=== PATIENT | male | born 1995 | race Caucasian/White ===

== ENCOUNTER 2021-07-23 17:58 | Emergency (ER) | payer BC ==
[2021-07-23] MEDS ORDERED: Ondansetron 4 MG/2 ML SDV IVPUSH ONE (18:06)
[2021-07-23] MEDS: Sodium Chloride 0.9% 10 ML Syringe FLUSH PRN ×2 (18:26→19:21)
[2021-07-23 18:28] LABS: CHLORIDE,CL 100 mmol/L (98-107); SODIUM,NA 136 mmol/L (136-145)
[2021-07-23 18:29] LABS: ANION GAP 16.8 meq/L (7-15)
[2021-07-23] MEDS ORDERED: Potassium Chloride 20 MEQ Tab.ER PO ONE (18:32)
[2021-07-23] MEDS ORDERED: Acetaminophen 500 MG Tab PO ONE (18:34)
[2021-07-23 18:45] LABS: CORONAVIRUS COVID-19 NAA NEGATIVE (NEGATIVE); RESPIRATORY SYNCYTIAL VIR NAA NEGATIVE (NEGATIVE)
[2021-07-23] MEDS ORDERED: Lactated Ringers 1,000 ML IV ONE (18:52)
[2021-07-23] MEDS ORDERED: Sodium Chloride 0.9% 1,000 ML IV ONE (18:57)
== END 2021-07-23 20:24 | disposition home or self-care (01) ==
LOC: LL.ED 17:58
DX: J10.1 Influenza due to other identified influenza virus with other respiratory manifestations (principal); R11.2 Nausea with vomiting, unspecified; Z20.822 Contact with and (suspected) exposure to COVID-19
CPT/HCPCS: 0241U; 36415; 80053; 83605; 83690; 83735; 85025; 86140; 96374; 99284; A9270; J2405; J3490; J7030